=== PATIENT | female | born 1975 | race Caucasian/White ===

== ENCOUNTER 2018-03-30 08:28 | Emergency (ER) | payer MEDICAID ==
[2018-03-30 08:33] VITALS: BP 207/195
--- NOTE | 2018-03-30 09:18 | EDPHY ---
H & P Stated Complaint: painful, itchy bumps bilateral legs starting a few months ago getting worse Time Seen by Provider: 03/30/18 09:13 HPI/ROS: HPI: This is a 42-year-old female who presents with Chief Complaint: painful, itchy bumps bilateral legs starting a few months ago getting worse Location: Bilateral legs Quality: Bumps Duration: Few months Signs and Symptoms: no fever, no nausea, no vomiting, no diarrhea, no urinary symptoms, no chest pain, no shortness of breath, no wheezing, no cough, no sore throat, no neck stiffness, no joint pain, no swollen glands, no ear pain Timing: Waxes and wane Severity: [id number] Context: Patient reports that over the last several months she has had painful itchy drive raised bumps that have slowly started to spread. Patient reports that she recently started a new job and cannot take any time off so went to an urgent care several weeks ago and started on topical steroid and antifungal cream without any relief of the symptoms. She also took 1 pill of Diflucan. She reports that the bumps have now spread up into her upper thighs into her forearms bilaterally. They are extremely itchy. She has not recently traveled. Does not have any animals in the house. No other family members or friends have the same rash. No history of eczema/psoriasis. Modifying Factors: See above Comment: ROS: see HPI Constitutional: no fever, no chills, no weight loss Eyes: No blurred vision Respiratory: No shortness of breath, no cough Cardiovascular: No chest pain, no palpitations Gastrointestinal: No nausea, no vomiting, no diarrhea, no hematemesis, no blood in stool Genitourinary: No dysuria, no blood in urine Extremities: No myalgias, no edema Neurologic: No weakness, no numbness Skin: No rashes, no petechiae Hematologic: No bruising, no bleeding MEDICAL/SURGICAL/SOCIAL HISTORY: Medical history: Generally healthy. Does not take any regular medications. Surgical history: Denies Social history: Some day smoker. Employed. Family history noncontributory. CONSTITUTIONAL: awake and alert, no obvious distress HEENT: Atraumatic and normocephalic, PERRL, EOMI. Nares patent; no rhinorrhea; no nasal mucosal edema. Tympanic membranes clear. Oropharynx clear, no exudate and moist pink mucosa. Airway patent. No lymphadenopathy. No meningismus. Cardiovascular: Normal S1/S2, regular rate, regular rhythm, without murmur rub or gallop. PULMONARY/CHEST: Symmetrical and nontender. Clear to auscultation bilaterally. Good air movement. No accessory muscle usage. ABDOMEN: Soft, nondistended, nontender, no rebound, no guarding, no peritoneal signs, no masses or organomegaly. No CVAT. EXTREMITIES: 2/2 pulses, strength 5/5, no deformities, no clubbing, no cyanosis or edema. NEUROLOGICAL: no focal neuro deficits. GCS 15. SKIN: Warm and dry, raised 1-4 mm annular plaque-like with scaly like appearance approximately 20-30 lesions on her bilateral lower X legs and similar appearance approximately 10-20 on bilateral lower arms. None in the webspace. Does not vipul with palpation. Good capillary refill. Source: Patient Exam Limitations: No limitations - Personal History LMP (Females 10-55): IUD In Place - Medical/Surgical History Hx Asthma: No Hx Chronic Respiratory Disease: No Hx Diabetes: No Hx Cardiac Disease: No Hx Renal Disease: No Hx Cirrhosis: No Hx Alcoholism: No Hx HIV/AIDS: No Hx Splenectomy or Spleen Trauma: No Other PMH: none repoted - Social History Smoking Status: Current some day smoker Constitutional: Initial Vital Signs Temperature (C) 36.8 C 03/30/18 08:30 Heart Rate 90 03/30/18 08:30 Respiratory Rate 18 03/30/18 08:30 Blood Pressure 207/195 H 03/30/18 08:30 O2 Sat (%) 97 03/30/18 08:30 O2 Delivery Mode Room Air Allergies/Adverse Reactions: Sulfa (Sulfonamide Antibiotics) Allergy (Verified 03/30/18 08:29) Home Medications: Medication Instructions Recorded Abilify 03/30/18 Lamictal 03/30/18 Permethrin 5% [Elimite 5%] 1 lovely TP ONCE #60 g 03/30/18 Terbinafine HCl 250 mg PO DAILY #10 tablet 03/30/18 predniSONE [predniSONE TAPER] 10 mg PO DAILY 6 Days ea 03/30/18 Medical Decision Making ED Course/Re-evaluation: Vital signs reviewed. No systemic signs. Patient has already failed topical steroid and antifungal treatment. The decision made to start terbinafine times 10 days, prednisone taper and treat for underlying scabies infection. Dermatology referral given This patient was seen under the supervision of my secondary supervising physician. I evaluated care for this patient independently. Discussed this patient with Dr. Davies who did not see the patient. Differential Diagnosis: Differential diagnosis includes but is not limited to plaque psoriasis, eczema, scabies, contact dermatitis, tinea infection. Departure - Departure Disposition: Home, Routine, Self-Care Clinical Impression: Rash and nonspecific skin eruption Condition: Good Instructions: Impetigo (ED), Eczema (ED), Skin Yeast Infection (ED) Additional Instructions: Take Benadryl 25-50 mg as needed for itching. Take prednisone taper as directed. Use promethazine cream once. Take terbinafine daily times 10 days. If symptoms do not improve after 10 days, follow-up with dermatology for further evaluation and skin biopsy. Referrals: [facility] [Provider Group] - As per Instructions Prescriptions: Permethrin 5% [Elimite 5%] 1 lovely TP ONCE #60 g predniSONE [predniSONE TAPER] 10 mg PO DAILY 6 Days ea Terbinafine HCl 250 mg PO DAILY #10 tablet
== END 2018-03-30 09:42 | disposition home or self-care (01) ==
DX: R21 Rash and other nonspecific skin eruption (principal); F17.200 Nicotine dependence, unspecified, uncomplicated